=== PATIENT | male | born 1965 | race American Indian/Alaskan Native ===

== ENCOUNTER 2020-05-25 10:02 | Emergency (ER) | payer BC ==
[2020-05-25 10:48] VITALS: BP 137/83
[2020-05-25] MEDS ORDERED: KETOROLAC 30 MG/1 ML INJ IM ONE (11:23)
--- NOTE | 2020-05-25 11:26 | Emergency Department Report ---
ED Back Pain/Injury HPI - General Chief Complaint: Back Pain/Injury Stated Complaint: UPPER BACK PAIN Source: patient Limitations: No Limitations - History of Present Illness Initial Comments: 54-year-old male presents to the emergency room complaining of upper back pain that radiates down the right arm. Patient states that it started on Wednesday. Patient denies any injury no nausea no vomiting no blurred vision or headache. Patient states that he had taken ibuprofen 1 tablet and pain did not improve in a couple hours he took 2 more tablets and states that it did not help much. Patient has not taken anything for pain today. Patient does have a primary care provider Dr. Hough but has not followed up with him. MD Complaint: back pain Onset/Timin Similar Symptoms Previously: No Radiation: other (right arm) Severity: severe Severity scale (0 -10): 6 Quality: stabbing Consistency: constant Improves With: none Worsens With: sitting upright Context: unknown Associated Symptoms: denies: chest pain, difficulty walking, fever/chills, constipation, abdominal pain, shortness of breath - Related Data Previous Rx's Medication Instructions Recorded Last Taken Type Ibuprofen [Motrin] 800 mg PO Q8H #30 tablet 06/14/14 Unknown Rx methOCARBAMOL [Robaxin] 500 mg PO BID #30 tab 06/14/14 Unknown Rx traMADoL [Ultram 50 MG tab] 50 mg PO Q6HR PRN #20 tablet 06/14/14 Unknown Rx Allergies Allergy/AdvReac Type Severity Reaction Status Date / Time chloroquine Allergy Itching Verified 06/14/14 15:48 ED Review of Systems ROS: Stated complaint: UPPER BACK PAIN Other details as noted in HPI Comment: All other systems reviewed and negative ED Past Medical Hx - Past Medical History Previous Medical History?: Yes Hx Kidney Stones: Yes (2012) Additional medical history: Sinusitis - Surgical History Past Surgical History?: Yes Additional Surgical History: Kidneystones removed 2012 - Social History Smoking Status: Never Smoker Substance Use Type: Alcohol - Medications Home Medications: Home Medications Medication Instructions Recorded Confirmed Last Taken Type Ibuprofen [Motrin] 800 mg PO Q8H #30 tablet 06/14/14 Unknown Rx methOCARBAMOL [Robaxin] 500 mg PO BID #30 tab 06/14/14 Unknown Rx traMADoL [Ultram 50 MG tab] 50 mg PO Q6HR PRN #20 tablet 06/14/14 Unknown Rx ED Physical Exam - General Limitations: No Limitations General appearance: alert, in no apparent distress - Head Head exam: Present: atraumatic, normocephalic - Eye Eye exam: Present: normal appearance - ENT ENT exam: Present: mucous membranes moist - Neck Neck exam: Present: normal inspection, full ROM. Absent: tenderness - Respiratory Respiratory exam: Absent: accessory muscle use - Cardiovascular Cardiovascular Exam: Present: regular rate - Expanded Upper Extremity Exam Right Shoulder Exam: Present: normal inspection, full ROM. Absent: tenderness, swelling Upper Arm exam: Present: normal inspection, full ROM. Absent: tenderness, swelling Elbow exam: Present: normal inspection, full ROM. Absent: tenderness, swelling Forearm Wrist exam: Present: normal inspection, full ROM Hand Wrist exam: Present: normal inspection, full ROM Neuro motor exam: Present: wrist extension intact, thumb opposition intact, thumb IP flexion intact, thumb adduction intact, fingers 2-5 abduction intact Neurosensory exam: Present: 2-point discrimination, radial nerve intact, ulnar nerve intact, median nerve intact Vascular: Present: normal capillary refill. Absent: vascular compromise - Back Exam Back exam: Present: normal inspection, full ROM. Absent: tenderness - Neurological Exam Neurological exam: Present: alert, oriented X3, normal gait - Psychiatric Psychiatric exam: Present: normal affect, normal mood - Skin Skin exam: Present: warm, dry, intact, normal color. Absent: rash ED Course Vital Signs 05/25/20 10:47 Temperature 97.8 F Pulse Rate 57 L Respiratory 20 Rate Blood Pressure 137/83 [Right] O2 Sat by Pulse 98 Oximetry ED Medical Decision Making - Medical Decision Making 54-year-old male presents to the emergency room complaining of upper back pain that radiates down the right arm. Patient states that it started on Wednesday. Patient denies any injury no nausea no vomiting no blurred vision or headache. Patient states that he had taken ibuprofen 1 tablet and pain did not improve in a couple hours he took 2 more tablets and states that it did not help much. Patient has not taken anything for pain today. Patient does have a primary care provider Dr. Hough but has not followed up with him. Patient will be given a Toradol injection. Discussed with patient to follow-up with his primary care provider. Patient can take ibuprofen 600 to 800 mg every 6-8 hours. Critical care attestation.: If time is entered above; I have spent that time in minutes in the direct care of this critically ill patient, excluding procedure time. ED Disposition Clinical Impression: Shoulder blade pain Disposition: - TO HOME OR SELFCARE Is pt being admited?: No Does the pt Need Aspirin: No Condition: Stable Instructions: Chest Pain (ED) Additional Instructions: Take ibuprofen 600 to 800 mg every 6-8 hours as needed. Be sure to drink plenty of fluids while taking medication. You can try [id number] Voltaren gel to apply at the site of discomfort. Referrals: PRIMARY CARE,MD [Primary Care Provider] - 3-5 Days Your, primary care provider [Other] - 3-5 Days
== END 2020-05-25 11:51 | disposition home or self-care (01) ==
LOC: ED 10:02
DX: M25.511 Pain in right shoulder (principal); Z79.899 Other long term (current) drug therapy; Z88.8 Allergy status to other drugs, medicaments and biological substances
CPT/HCPCS: 96372; 99281; J1885